=== PATIENT | male | born 1960 | race Caucasian/White ===

== ENCOUNTER 2018-03-21 08:37 | Inpatient (IN) | payer OTHER ==
[~2018-03-21] VITALS: Ht 172.7 cm; Wt 99.9 kg
[2018-03-21] VITALS (9 sets, daily range): BP systolic 102–126; BP diastolic 57–84
[2018-03-21] MEDS ORDERED: aspirin 81mg tab.chew PO ONE (09:05)
[2018-03-21] MEDS: nitroGLYCERIN 0.4mg SUBLingual tab SL PRN ×3 (09:13→10:34)
[2018-03-21 09:18] LABS: BASOPHILS % (AUTO) 0.3 % (0-1); EOSINOPHILS # (AUTO) 0.3 X10'3 (0-0.9); EOSINOPHILS % (AUTO) 2.2 % (0-6); HEMOGLOBIN 16.7 g/dl (14.0-17.9); LYMPHOCYTES # (AUTO) 2.8 X10'3 (1.1-4.8); LYMPHOCYTES % (AUTO) 20.5 % (21-51); MEAN CORPUSCULAR HGB CONC 34.1 g/dL (33.0-36.5); MEAN CORPUSCULAR VOLUME 90.9 FL (78-98); MEAN PLATELET VOLUME 8.9 FL (7.4-10.4); MONOCYTES % (AUTO) 7.6 % (2-12); NEUTROPHILS # (AUTO) 9.4 X10'3 (1.8-7.7); NEUTROPHILS % (AUTO) 69.4 % (42-75); PLATELET COUNT 239 X10'3 (140-440); RED BLOOD COUNT 5.39 X10'6 (4.70-6.10); RED CELL DISTRIBUTION WIDTH 12.9 % (11.5-14.5); WHITE BLOOD COUNT 13.6 X10'3 (4.5-11.0)
[2018-03-21 09:33] LABS: ANION GAP 12 (8-16); CHLORIDE 104 MMOL/L (99-107); GLUCOSE 119 MG/DL (70-104); POTASSIUM 3.9 MMOL/L (3.5-5.1); SODIUM 140 MMOL/L (135-145); TOTAL CARBON DIOXIDE 24.1 MMOL/L (24-32)
[2018-03-21 09:34] LABS: ALANINE AMINOTRANSFERASE 43 U/L (12-78); ALBUMIN 4.2 G/DL (3.4-5.0); ALBUMIN/GLOBULIN RATIO 1.2 (1.1-1.5); ALKALINE PHOSPHATASE 71 IU/L (46-116); ASPARTATE AMINO TRANSFERASE 42 U/L (10-37); BILIRUBIN,TOTAL 0.4 MG/DL (0.1-1.0); BLOOD UREA NITROGEN 21 MG/DL (7-18); BUN/CREATININE RATIO 19.3 (5.4-32.0); CALCIUM 9.6 MG/DL (8.5-10.1); CREATININE 1.09 MG/DL (0.60-1.10); TOTAL PROTEIN 7.8 G/DL (6.4-8.2); eGFR 70 ML/MIN
[2018-03-21 09:40] LABS: PARTIAL THROMBOPLASTIN TIME 29 SECONDS (22-32)
[2018-03-21] MEDS ORDERED: heparin 25,000 UNIT/250ml bag 250 ML IV SCH (09:44)
[2018-03-21] MEDS ORDERED: nitroGLYCERIN 0.4mg SUBLingual tab SL PRN (09:45)
[2018-03-21] MEDS ORDERED: heparin 10,000 units/1 ML INJ IV ONE ×2 (09:45→09:50)
[2018-03-21] MEDS ORDERED: heparin 10,000 units/1 ML INJ IV PRN (09:45)
[2018-03-21] MEDS: tirofiban 5mg in NS 100mL 100 ML IV SCH ×2 (10:15→17:05)
[2018-03-21] MEDS ORDERED: normal saline 1000ml 1,000 ML IV SCH (10:18)
[2018-03-21] MEDS ORDERED: magnesium 4gm in 100ml NS 100 ML IV PRN (10:20)
[2018-03-21] MEDS ORDERED: potassium Cl 20 mEq SR tablet PO PRN ×2 (10:20)
[2018-03-21] MEDS ORDERED: nitroGLYCERIN 1gm ointment UD TP ONE (10:20)
[2018-03-21] MEDS ORDERED: morphine 4 MG/ML inj SYRINge IV PRN (10:20)
[2018-03-21] MEDS ORDERED: potassium Cl 40MEQ/NS 500ml 500 ML IV PRN ×2 (10:20)
[2018-03-21] MEDS ORDERED: magnesium Cl slow-release 64mg tablet PO PRN (10:20)
[2018-03-21] MEDS ORDERED: magnesium 2GM in 50ml NS 50 ML IV PRN (10:20)
[2018-03-21] MEDS ORDERED: ondansetron/PF 4mg/2ml inj IV PRN (10:20)
[2018-03-21] MEDS ORDERED: atorvastatin 20mg tablet PO SCH (11:15)
[2018-03-21 11:47] LABS: CHOL/HDL RATIO 2.8 (0.00-4.99); CHOLESTEROL 95 MG/DL (0-200); HDL CHOLESTEROL 34 MG/DL (35-60); LDL CHOLESTEROL 47 MG/DL (50-100); TRIGLYCERIDES 103 MG/DL (20-135)
--- NOTE | 2018-03-21 12:00 | NUR ---
Call from Benita mancia patient will be taken to the liaison inspection laboratory assistant at 1700 and patient may have lunch be NPO after that.
--- NOTE | 2018-03-21 12:51 | NUR ---
PAGER ID: [phone] MESSAGE: Pt DesireeManolo henao in [phone] has a trop of 5.01. Art, [phone] Pt arrived to room. Assessment complete. Pt oriented to room and placed on monitor. All questions answered
--- NOTE | 2018-03-21 14:05 | NUR ---
Dr. Segundo is in room evaluating pt.
[2018-03-21] MEDS ORDERED: ASPI-611 PO (14:43)
[2018-03-21] MEDS ORDERED: CLOP75TA15 PO (15:19)
[2018-03-21] MEDS ORDERED: ROSU20TA PO ×2 (15:19→16:49)
[2018-03-21] MEDS ORDERED: EZET10TA13 PO (15:19)
[2018-03-21] MEDS ORDERED: ALBU8.5H8 IH (15:19)
--- NOTE | 2018-03-21 15:36 | NUR ---
PAGER ID: [phone] MESSAGE: Dr. Segundo, PtKayla Tsang in [phone] most current Trop is 7.12. Art, [id number]
[2018-03-21] MEDS ORDERED: EZET10TA14 PO (16:49)
[2018-03-21] MEDS ORDERED: ASPI81TA52 PO (16:49)
[2018-03-21] MEDS ORDERED: CLOP75TA33 PO (16:49)
[2018-03-21] MEDS ORDERED: ALBU8.5H8 INH (16:49)
[2018-03-21] MEDS ORDERED: heparin 1,000unit/ml 10ml vial 10 ML ONE (18:09)
[2018-03-21] MEDS ORDERED: LIDOcaine 1% (10mg/ml)w/preservative injection 20ml MDV ONE (18:09)
[2018-03-21] MEDS ORDERED: verapamil 2.5 mg/ml inj IV ONE (18:09)
[2018-03-21] MEDS ORDERED: heparin 1,000 UNITS/NS 500ml 500 ML ONE ×2 (18:10)
[2018-03-21] MEDS ORDERED: iohexol 350MG/ML 100ml bottle IV ONE ×2 (18:10→18:51)
--- NOTE | 2018-03-21 18:21 | NUR ---
Pt to medical laboratory technician.
[2018-03-21] MEDS ORDERED: midazolam 2 mg/2 ml injection ONE ×2 (18:25→18:38)
[2018-03-21] MEDS ORDERED: fentaNYL/PF 50MCG/1 ML 2ML syringe ONE (18:25)
[2018-03-21] MEDS ORDERED: ticagrelor 90mg tablet ONE (18:59)
[2018-03-21] MEDS ORDERED: HYDROcodone/acetaminophen 5mg/325mg tablet PO PRN (19:40)
[2018-03-21] MEDS ORDERED: OXAZEpam 15mg capsule PO PRN (19:40)
[2018-03-21] MEDS ORDERED: proCHLORperazine 10 MG/2 ml inj IV PRN (19:40)
[2018-03-21] MEDS: HYDROcodone/acetaminophen 10/325mg tab PO PRN ×3 (19:48→22:21)
[2018-03-21] MEDS ORDERED: temazepam 15mg capsule PO PRN (21:25)
[2018-03-22 03:00] VITALS: BP 98/64
[2018-03-22 05:54] LABS: BASOPHILS % (AUTO) 0.3 % (0-1); EOSINOPHILS # (AUTO) 0.3 X10'3 (0-0.9); EOSINOPHILS % (AUTO) 2.3 % (0-6); HEMOGLOBIN 14.6 g/dl (14.0-17.9); LYMPHOCYTES # (AUTO) 2.8 X10'3 (1.1-4.8); MEAN CORPUSCULAR HEMOGLOBIN 31.2 PG (27.0-31.0); MEAN CORPUSCULAR HGB CONC 33.9 g/dL (33.0-36.5); MEAN CORPUSCULAR VOLUME 92.1 FL (78-98); MEAN PLATELET VOLUME 9.1 FL (7.4-10.4); MONOCYTES # (AUTO) 1.7 X10'3 (0-0.9); MONOCYTES % (AUTO) 12.2 % (2-12); NEUTROPHILS % (AUTO) 65.2 % (42-75); PLATELET COUNT 196 X10'3 (140-440); RED BLOOD COUNT 4.67 X10'6 (4.70-6.10); RED CELL DISTRIBUTION WIDTH 12.7 % (11.5-14.5); WHITE BLOOD COUNT 13.8 X10'3 (4.5-11.0)
[2018-03-22 05:57] LABS: ALBUMIN 3.3 G/DL (3.4-5.0); ANION GAP 9 (8-16); BLOOD UREA NITROGEN 17 MG/DL (7-18); BUN/CREATININE RATIO 18.1 (5.4-32.0); CALCIUM 8.6 MG/DL (8.5-10.1); CHLORIDE 109 MMOL/L (99-107); CREATININE 0.94 MG/DL (0.60-1.10); GLUCOSE 71 MG/DL (70-104); MAGNESIUM 1.9 MG/DL (1.5-2.4); POTASSIUM 4.3 MMOL/L (3.5-5.1); SODIUM 142 MMOL/L (135-145); TOTAL CARBON DIOXIDE 24.2 MMOL/L (24-32); eGFR 83 ML/MIN
[2018-03-22 06:00] VITALS: BP 94/62
[2018-03-22] MEDS ORDERED: ezetimibe 10mg tablet PO SCH (08:00)
[2018-03-22] MEDS ORDERED: atorvastatin 20mg tablet PO SCH (08:00)
[2018-03-22] MEDS ORDERED: K and/or MAG REPLACEMENT MC SCH (08:00)
[2018-03-22] MEDS ORDERED: ticagrelor 90mg tablet PO SCH (08:00)
[2018-03-22] MEDS ORDERED: aspirin 81mg tablet.DR PO SCH (08:30)
[2018-03-22] MEDS ORDERED: TICA90TA PO (11:23)
--- NOTE | 2018-03-22 12:00 | NUR ---
PROVIDED PATIENT WITH DISCHARGE INSTRUCTIONS WELL NEW PRESCRIPTION INFORMATION. PATIENT AWARE HE IS TO FOLLOW UP WITH PRIMARY CARE DOCTOR WELL HIS [facility] TAMPER IN [place]. 2 IVS REMOVED, CATHETERS INTACT, MINIMAL BLEEDING WITH CLEAN GAUZE APPLIED AND SECURED WITH TAPE. PATIENT CHOOSES TO USE [facility]IGUEL'S BEDSIDE DELIVERY TO OBTAIN BRILINTA. PATIENT AND HIS ARE AWARE OF THE IMPORTANCE OF CONTINUING BRILINTA ORDERED, NOT MISSING ANY DOSES FOR RISK OF STENT COLLAPSE AND/OR CLOTTING/TN. PATIENT AND HIS DENY ANY FURTHER QUESTIONS OR CONCERNS.
== END 2018-03-22 13:05 | disposition home or self-care (01) | DRG 247 ==
LOC: ER 08:39 → ED HOLD 10:18 → MED 3N 12:35
PROVIDERS: ADMIT Internal Medicine; ATTEND Internal Medicine
PROC: 4A023N7 Measurement of Cardiac Sampling and Pressure, Left Heart, Percutaneous Approach (ICD-10-PCS; principal; 2018-03-21)
PROC: 027135Z Dilation of Coronary Artery, Two Arteries with Two Drug-eluting Intraluminal Devices, Percutaneous Approach (ICD-10-PCS; 2018-03-21)
PROC: B2111ZZ Fluoroscopy of Multiple Coronary Arteries using Low Osmolar Contrast (ICD-10-PCS; 2018-03-21)
PROC: B2151ZZ Fluoroscopy of Left Heart using Low Osmolar Contrast (ICD-10-PCS; 2018-03-21)
DX: I21.4 Non-ST elevation (NSTEMI) myocardial infarction (principal); T82.858A Stenosis of other vascular prosthetic devices, implants and grafts, initial encounter; I25.10 Atherosclerotic heart disease of native coronary artery without angina pectoris; E78.00 Pure hypercholesterolemia, unspecified; E78.5 Hyperlipidemia, unspecified; F12.90 Cannabis use, unspecified, uncomplicated; Y83.8 Other surgical procedures as the cause of abnormal reaction of the patient, or of later complication, without mention of misadventure at the time of the procedure; I10 Essential (primary) hypertension; Z79.899 Other long term (current) drug therapy; I25.2 Old myocardial infarction; Z95.5 Presence of coronary angioplasty implant and graft; Z71.6 Tobacco abuse counseling; Z79.82 Long term (current) use of aspirin; Z87.891 Personal history of nicotine dependence; Y92.89 Other specified places as the place of occurrence of the external cause
CPT/HCPCS: 92920; 93306; 93458; 96365; 96376; 99291; C9600; 36415; 71045; 80048; 80053; 80061; 83735; 84484; 85025; 85610; 85730; 87070; 93005; 99152; 99153; A4620; C1725; C1769; C1874; C9601; G0378; J1644; J2001; J2250; J3010; J3246; J7030; Q9967